=== PATIENT | female | born 1955 | race Caucasian/White ===

== ENCOUNTER 2021-06-19 10:01 | Day surgery (SDC) | payer MEDICARE, BC ==
[~2021-06-19] VITALS: Ht 172.7 cm; Wt 81.6 kg
[2021-06-19] VITALS (19 sets, daily range): BP systolic 110–151; BP diastolic 52–70
[~2021-06-19 10:01] MED LIST: ASPI-611 PO; CITA-311 PO; HYDR-4383 PO; LISI1TAB49 PO; LOVA20TA2 PO; POTA10TA37 PO; ZOLP5TAB8 PO
[2021-06-19] MEDS ORDERED: normal saline 1000ml 1,000 ML IV SCH (10:30)
[2021-06-19] MEDS ORDERED: fentaNYL/PF 50MCG/1 ML 2ML syringe IV ONE (10:30)
[2021-06-19] MEDS ORDERED: MIDAZolam 1mg/ml 10ml vial IV ONE (10:30)
[2021-06-19] MEDS ORDERED: ROSU40TA22 PO (10:47)
[2021-06-19] MEDS ORDERED: CLOP75TA34 PO (10:47)
[2021-06-19] MEDS ORDERED: LISI40TA13 PO (10:47)
[2021-06-19] MEDS ORDERED: AMLO5TAB16 PO (10:47)
[2021-06-19] MEDS ORDERED: MAGN500C4 PO (10:49)
[2021-06-19] MEDS ORDERED: VITA1TAB20 PO (10:49)
[2021-06-19] MEDS ORDERED: Potassium PO (10:52)
[2021-06-19] MEDS ORDERED: ESZO2TAB22 PO (10:52)
== END 2021-06-19 13:30 | disposition home or self-care (01) ==
LOC: SSTAY O 10:01
PROVIDERS: ATTEND Student in an Organized Health Care Education/Training Program
DX: I42.1 Obstructive hypertrophic cardiomyopathy (principal); I08.0 Rheumatic disorders of both mitral and aortic valves; I11.9 Hypertensive heart disease without heart failure; F41.9 Anxiety disorder, unspecified; I70.218 Atherosclerosis of native arteries of extremities with intermittent claudication, other extremity; E78.5 Hyperlipidemia, unspecified; Z88.1 Allergy status to other antibiotic agents; Z79.82 Long term (current) use of aspirin; Z79.01 Long term (current) use of anticoagulants; Z79.899 Other long term (current) drug therapy
CPT/HCPCS: 93312; 93325; 94799; J2250; J3010; J7030

== ENCOUNTER 2022-11-26 10:20 | Day surgery (SDC) | payer MEDICARE, BC ==
[2022-11-22 08:27] LABS: BASOPHILS % (AUTO) 0.3 % (0-1); EOSINOPHILS # (AUTO) 0.2 X10'3 (0-0.9); EOSINOPHILS % (AUTO) 1.9 % (0-6); HEMATOCRIT 40.9 % (35.0-45.0); HEMOGLOBIN 13.9 g/dl (12.0-16.0); LYMPHOCYTES # (AUTO) 1.4 X10'3 (1.1-4.8); LYMPHOCYTES % (AUTO) 15.7 % (21-51); MEAN CORPUSCULAR HEMOGLOBIN 28.7 PG (27.0-31.0); MEAN CORPUSCULAR HGB CONC 34.1 g/dL (33.0-36.5); MEAN CORPUSCULAR VOLUME 84.4 FL (78-98); MEAN PLATELET VOLUME 9.6 FL (7.4-10.4); MONOCYTES # (AUTO) 0.7 X10'3 (0-0.9); MONOCYTES % (AUTO) 7.5 % (2-12); NEUTROPHILS # (AUTO) 6.7 X10'3 (1.8-7.7); NEUTROPHILS % (AUTO) 74.6 % (42-75); PLATELET COUNT 207 X10'3 (140-440); RED BLOOD COUNT 4.84 X10'6 (4.20-5.60); RED CELL DISTRIBUTION WIDTH 13.3 % (11.5-14.5); WHITE BLOOD COUNT 8.9 X10'3 (4.5-11.0)
[2022-11-22 08:48] LABS: APTT 32 SECONDS (22-32); PROTHROMBIN TIME 10.7 SECONDS (9.0-12.0)
[2022-11-22 09:46] LABS: ALBUMIN 3.5 G/DL (3.4-5.0); ANION GAP 10 (8-16); BLOOD UREA NITROGEN 15 MG/DL (7-18); BUN/CREATININE RATIO 17.2 (10.0-20.0); CALCIUM 9.1 MG/DL (8.5-10.1); CHLORIDE 105 MMOL/L (99-107); CHOLESTEROL 141 MG/DL (0-200); CREATININE 0.87 MG/DL (0.40-0.90); GLUCOSE 97 MG/DL (70-104); HDL CHOLESTEROL 47 MG/DL (35-60); LDL CHOLESTEROL 64 MG/DL (50-100); POTASSIUM 3.5 MMOL/L (3.5-5.1); SODIUM 142 MMOL/L (135-145); TOTAL CARBON DIOXIDE 26.8 MMOL/L (24-32); TRIGLYCERIDES 152 MG/DL (20-135); eGFR 65 ML/MIN
[2022-11-26] VITALS (7 sets, daily range): BP systolic 126–150; BP diastolic 52–75; PULSE 54–64; RESP 16; TEMP 98.3; O2SAT 92–95
[~2022-11-26] VITALS: Ht 149.9 cm; Wt 84.5 kg
[~2022-11-26 10:20] MED LIST changes: +AMLO5TAB16 PO; +CLOP75TA34 PO; +ESZO2TAB22 PO; -LISI1TAB49 PO; +LISI40TA13 PO; +LORazepam 0.5 MG tablet PO PRN; -LOVA20TA2 PO; +MAGN500C4 PO; -POTA10TA37 PO; +Potassium PO; +ROSU40TA22 PO; +VITA1TAB20 PO; -ZOLP5TAB8 PO; +diphenhydrAMINE 25mg capsule PO PRN; +normal saline 1,000 ML IV SCH
[2022-11-26] MEDS ORDERED: CITA40TA16 PO (11:25)
[2022-11-26] MEDS ORDERED: DILT-117 PO (11:26)
[2022-11-26] MEDS ORDERED: NITR0.4T48 (11:26)
[2022-11-26] MEDS ORDERED: PANT40TA54 PO (11:26)
[2022-11-26] MEDS ORDERED: POTA8CAP20 PO (11:28)
[2022-11-26] MEDS ORDERED: LIDOcaine 1% (10mg/ml) 2ml vial ONE (11:40)
[2022-11-26] MEDS ORDERED: nitroGLYCERIN-Tridil 50MG/D5W 250 ML IV ONE (11:40)
[2022-11-26] MEDS ORDERED: verapamil 2.5 mg/ml inj IV ONE (11:40)
[2022-11-26] MEDS ORDERED: iohexol 350MG/ML 100ml bottle IV ONE ×3 (11:41→13:28)
[2022-11-26] MEDS ORDERED: heparin 1,000unit/ml 10ml vial 10 ML ONE (11:41)
[2022-11-26] MEDS ORDERED: midazolam 1 mg/ML 2ml injection ONE ×2 (11:41→13:10)
[2022-11-26] MEDS ORDERED: fentaNYL/PF 50MCG/1 ML 2ML syringe ONE ×3 (11:41→13:52)
[2022-11-26] MEDS ORDERED: LIDOcaine 1% 30ml preserv. free vial ONE (13:07)
[2022-11-26] MEDS ORDERED: proCHLORperazine 10 MG/2 ml inj ONE (13:16)
[2022-11-26] MEDS ORDERED: heparin 1,000 UNITS/NS 500ml 500 ML ONE (13:34)
[2022-11-26] MEDS ORDERED: aspirin 325mg tablet ONE (13:49)
[2022-11-26] MEDS ORDERED: clopidogrel 300mg tablet ONE (13:49)
[2022-11-26] MEDS ORDERED: HYDROcodone/acetaminophen 5mg/325mg tablet PO PRN (15:50)
[2022-11-26] MEDS ORDERED: HYDROcodone/acetaminophen 10/325mg tab PO PRN (15:50)
== END 2022-11-26 16:20 | disposition home or self-care (01) ==
LOC: SSTAY O 10:20
PROVIDERS: ATTEND Student in an Organized Health Care Education/Training Program
DX: I25.118 Atherosclerotic heart disease of native coronary artery with other forms of angina pectoris (principal); I25.82 Chronic total occlusion of coronary artery; I10 Essential (primary) hypertension; E78.5 Hyperlipidemia, unspecified; I65.21 Occlusion and stenosis of right carotid artery; I47.1 Supraventricular tachycardia; I42.8 Other cardiomyopathies; F17.290 Nicotine dependence, other tobacco product, uncomplicated; F41.9 Anxiety disorder, unspecified; Z79.899 Other long term (current) drug therapy; Z79.82 Long term (current) use of aspirin; Z88.1 Allergy status to other antibiotic agents
CPT/HCPCS: 36223; 36415; 80048; 80061; 85025; 85610; 85730; 93005; 93458; 99152; 99153; A6258; C1874; C9600; J0780; J1644; J2250; J3010; J3490; J7030; Q0163; Q9967; 36224; A4615; A6402; C1725; C1751; C1760; C1769; C1894

== ENCOUNTER 2023-04-28 05:26 | Day surgery (SDC) | payer MEDICARE, BC ==
[2023-04-22 10:01] LABS: BASOPHILS % (AUTO) 0.4 % (0-1); EOSINOPHILS # (AUTO) 0.1 X10'3 (0-0.9); EOSINOPHILS % (AUTO) 1.9 % (0-6); LYMPHOCYTES # (AUTO) 1.3 X10'3 (1.1-4.8); LYMPHOCYTES % (AUTO) 19.9 % (21-51); MEAN CORPUSCULAR HEMOGLOBIN 28.4 PG (27.0-31.0); MEAN CORPUSCULAR HGB CONC 33.6 g/dL (33.0-36.5); MEAN CORPUSCULAR VOLUME 84.5 FL (78-98); MEAN PLATELET VOLUME 9.3 FL (7.4-10.4); MONOCYTES # (AUTO) 0.4 X10'3 (0-0.9); MONOCYTES % (AUTO) 6.4 % (2-12); NEUTROPHILS # (AUTO) 4.7 X10'3 (1.8-7.7); NEUTROPHILS % (AUTO) 71.4 % (42-75); PRE OP HEMATOCRIT 42.6 % (35.0-45.0); PRE OP HEMOGLOBIN 14.3 g/dL (12.0-16.0); PRE OP PLATELET COUNT 204 X10'3 (140-440); PRE OP WHITE BLOOD COUNT 6.5 10'3 (4.8-10.8); RED BLOOD COUNT 5.04 X10'6 (4.20-5.60); RED CELL DISTRIBUTION WIDTH 14.1 % (11.5-14.5)
[2023-04-22 10:02] LABS: ALBUMIN 3.6 G/DL (3.4-5.0); ALBUMIN/GLOBULIN RATIO 0.9 (1.1-1.5); ALKALINE PHOSPHATASE 118 IU/L (46-116); BLOOD UREA NITROGEN 18 MG/DL (7-18); BUN/CREATININE RATIO 20.2 (10.0-20.0); CALCIUM 9.1 MG/DL (8.5-10.1); CHLORIDE 105 MMOL/L (99-107); CREATININE 0.89 MG/DL (0.40-0.90); PRE OP ALT 25 U/L (30-65); PRE OP ANION GAP 9 (8-16); PRE OP AST 21 U/L (10-37); PRE OP BILIRUB, TOTAL 0.4 MG/DL (0.0-1.0); PRE OP GLUCOSE 101 MG/DL (70-104); PRE OP POTASSIUM 4.3 MMOL/L (3.4-5.1); PRE OP SODIUM 141 MMOL/L (135-145); TOTAL CARBON DIOXIDE 27.4 MMOL/L (24-32); TOTAL PROTEIN 7.5 G/DL (6.4-8.2); eGFR 63 ML/MIN
[~2023-04-28] VITALS: Ht 175.3 cm; Wt 79.8 kg
[2023-04-28] VITALS (7 sets, daily range): BP systolic 119–154; BP diastolic 50–68; PULSE 58–72; RESP 11–16; TEMP 97.5; O2SAT 92–99
[~2023-04-28 05:26] MED LIST changes: -AMLO5TAB16 PO; -CITA-311 PO; +CITA40TA16 PO; +DILT-117 PO; -LORazepam 0.5 MG tablet PO PRN; -MAGN500C4 PO; +NITR0.4T48; +PANT40TA54 PO; +POTA8CAP20 PO; -Potassium PO; -VITA1TAB20 PO; -diphenhydrAMINE 25mg capsule PO PRN; -normal saline 1,000 ML IV SCH; +ringers solution, lacted 1,000 ML IV SCH
[2023-04-28] MEDS ORDERED: ringers solution, lactated 500 ML IV ONE (05:30)
[2023-04-28] MEDS ORDERED: cefazolin 2gm/D5W 100mL 100 ML IV ONE (05:30)
[2023-04-28] MEDS ORDERED: DOCUMENT DATE & TIME OF BETA-BLOCKER PO ONE (05:30)
[2023-04-28] MEDS ORDERED: famotidine 20mg tablet PO ONE (05:30)
[2023-04-28] MEDS ORDERED: BUPIVAcaine/PF 2.5mg/ml (0.25%) 10ml vial ONE (06:37)
[2023-04-28] MEDS ORDERED: fentaNYL/PF 50MCG/1 ML 2ML syringe ONE (07:33)
[2023-04-28] MEDS ORDERED: MIDAZolam 1 MG/ML 5ML VIAL ONE (07:33)
[2023-04-28] MEDS ORDERED: LIDOcaine 2% (20mg/ml) 5ml vial ONE (07:34)
[2023-04-28] MEDS ORDERED: propofol inj 20 ML IV ONE (07:34)
[2023-04-28] MEDS ORDERED: ringers solution, lacted 1,000 ML IV SCH (07:40)
[2023-04-28] MEDS ORDERED: morphine 2 MG/ML inj. syringe IV PRN (07:40)
[2023-04-28] MEDS ORDERED: labetalol 20mg/4ml (5mg/ml) syringe IV PRN (07:40)
[2023-04-28] MEDS ORDERED: hydrALAZINE 20mg/ml inj. IV PRN (07:40)
[2023-04-28] MEDS ORDERED: ondansetron/PF 4mg/2ml inj IV PRN (07:40)
[2023-04-28] MEDS ORDERED: morphine 4 MG/ML inj SYRINge IV PRN (07:40)
[2023-04-28] MEDS ORDERED: BUPIVAcaine/PF 2.5mg/ml (0.25%) 10ml vial IJ ONE (08:20)
== END 2023-04-28 09:41 | disposition home or self-care (01) ==
LOC: PAS 05:26
PROVIDERS: ATTEND Orthopaedic Surgery Hand Surgery
DX: M65.4 Radial styloid tenosynovitis [de Quervain] (principal); J44.9 Chronic obstructive pulmonary disease, unspecified; I12.9 Hypertensive chronic kidney disease with stage 1 through stage 4 chronic kidney disease, or unspecified chronic kidney disease; N18.30 Chronic kidney disease, stage 3 unspecified; E78.5 Hyperlipidemia, unspecified; I25.10 Atherosclerotic heart disease of native coronary artery without angina pectoris; F41.9 Anxiety disorder, unspecified; F32.A Depression, unspecified; F17.210 Nicotine dependence, cigarettes, uncomplicated; Z98.890 Other specified postprocedural states; Z95.5 Presence of coronary angioplasty implant and graft; Z88.1 Allergy status to other antibiotic agents
CPT/HCPCS: 25000; 36415; 80053; 82948; 85025; A6222; J0690; J2250; J2270; J2704; J3010; J3490; J7030; J7120; Z7506; Z7512; A4215; A4618; A6449; A7000

== ENCOUNTER 2023-07-28 05:41 | Day surgery (SDC) | payer MEDICARE, BC ==
[2023-07-24 15:34] LABS: BASOPHILS % (AUTO) 0.7 % (0-1); EOSINOPHILS # (AUTO) 0.2 X10'3 (0-0.9); EOSINOPHILS % (AUTO) 3.7 % (0-6); LYMPHOCYTES # (AUTO) 1.7 X10'3 (1.1-4.8); LYMPHOCYTES % (AUTO) 30.2 % (21-51); MEAN CORPUSCULAR HEMOGLOBIN 29.3 PG (27.0-31.0); MEAN CORPUSCULAR HGB CONC 34.2 g/dL (33.0-36.5); MEAN CORPUSCULAR VOLUME 85.6 FL (78-98); MEAN PLATELET VOLUME 9.6 FL (7.4-10.4); MONOCYTES # (AUTO) 0.5 X10'3 (0-0.9); MONOCYTES % (AUTO) 9.5 % (2-12); NEUTROPHILS # (AUTO) 3.1 X10'3 (1.8-7.7); NEUTROPHILS % (AUTO) 55.9 % (42-75); PRE OP HEMATOCRIT 41.6 % (35.0-45.0); PRE OP HEMOGLOBIN 14.2 g/dL (12.0-16.0); PRE OP PLATELET COUNT 190 X10'3 (140-440); PRE OP WHITE BLOOD COUNT 5.6 10'3 (4.8-10.8); RED BLOOD COUNT 4.86 X10'6 (4.20-5.60); RED CELL DISTRIBUTION WIDTH 13.8 % (11.5-14.5)
[2023-07-24 16:21] LABS: ALBUMIN 3.5 G/DL (3.4-5.0); ALKALINE PHOSPHATASE 97 IU/L (46-116); BLOOD UREA NITROGEN 18 MG/DL (7-18); BUN/CREATININE RATIO 16.7 (10.0-20.0); CALCIUM 8.9 MG/DL (8.5-10.1); CHLORIDE 107 MMOL/L (99-107); CREATININE 1.08 MG/DL (0.40-0.90); PRE OP ALT 30 U/L (30-65); PRE OP ANION GAP 7 (8-16); PRE OP AST 26 U/L (10-37); PRE OP BILIRUB, TOTAL 0.3 MG/DL (0.0-1.0); PRE OP GLUCOSE 110 MG/DL (70-104); PRE OP SODIUM 143 MMOL/L (135-145); TOTAL CARBON DIOXIDE 28.7 MMOL/L (24-32); TOTAL PROTEIN 7.1 G/DL (6.4-8.2); eGFR 51 ML/MIN
[~2023-07-28] VITALS: Ht 175.3 cm; Wt 78.5 kg
[2023-07-28] VITALS (8 sets, daily range): BP systolic 126–144; BP diastolic 45–59; PULSE 56–61; RESP 13–16; TEMP 98.1; O2SAT 93–97
[~2023-07-28 05:41] MED LIST changes: -CLOP75TA34 PO; +DOCUMENT DATE & TIME OF BETA-BLOCKER PO ONE; -NITR0.4T48; -ringers solution, lacted 1,000 ML IV SCH
[2023-07-28] MEDS: cefazolin 2gm/D5W 100mL 100 ML IV ONE (06:41)
[2023-07-28] MEDS: ringers solution, lacted 1,000 ML IV SCH (06:41)
[2023-07-28] MEDS: famotidine 20mg tablet PO ONE (06:41)
[2023-07-28] MEDS ORDERED: LIDOcaine 2% (20mg/ml) 5ml vial ONE (07:06)
[2023-07-28] MEDS ORDERED: morphine 2 MG/ML inj. syringe IV PRN (07:10)
[2023-07-28] MEDS ORDERED: labetalol 20mg/4ml (5mg/ml) syringe IV PRN (07:10)
[2023-07-28] MEDS ORDERED: ondansetron/PF 4mg/2ml inj IV PRN (07:10)
[2023-07-28] MEDS ORDERED: hydrALAZINE 20mg/ml inj. IV PRN (07:10)
[2023-07-28] MEDS ORDERED: morphine 4 MG/ML inj SYRINge IV PRN (07:10)
[2023-07-28] MEDS ORDERED: ringers solution, lacted 1,000 ML IV SCH (07:10)
[2023-07-28] MEDS: BUPIVAcaine/PF 2.5mg/ml (0.25%) 10ml vial ONE (08:28)
[2023-07-28] MEDS: LIDOcaine 2% (20mg/ml) 5ml vial ONE (08:28)
[2023-07-28] MEDS ORDERED: propofol inj 20 ML IV ONE (08:44)
== END 2023-07-28 09:40 | disposition home or self-care (01) ==
LOC: PAS 05:41
PROVIDERS: ATTEND Orthopaedic Surgery Hand Surgery
DX: G56.01 Carpal tunnel syndrome, right upper limb (principal); I12.9 Hypertensive chronic kidney disease with stage 1 through stage 4 chronic kidney disease, or unspecified chronic kidney disease; N18.9 Chronic kidney disease, unspecified; I25.10 Atherosclerotic heart disease of native coronary artery without angina pectoris; E78.00 Pure hypercholesterolemia, unspecified; K21.9 Gastro-esophageal reflux disease without esophagitis; F41.9 Anxiety disorder, unspecified; F32.A Depression, unspecified; M19.90 Unspecified osteoarthritis, unspecified site; F17.210 Nicotine dependence, cigarettes, uncomplicated; Z85.840 Personal history of malignant neoplasm of eye; Z79.82 Long term (current) use of aspirin; Z79.891 Long term (current) use of opiate analgesic; Z79.899 Other long term (current) drug therapy; Z90.49 Acquired absence of other specified parts of digestive tract; Z90.89 Acquired absence of other organs; Z96.641 Presence of right artificial hip joint; Z98.890 Other specified postprocedural states; Z88.1 Allergy status to other antibiotic agents; Z82.49 Family history of ischemic heart disease and other diseases of the circulatory system; Z83.6 Family history of other diseases of the respiratory system
CPT/HCPCS: 29848; 36415; 80053; 82948; 85025; J0690; J2704; J3490; J7030; J7120; Z7506; Z7512; A4215; A6449; A7000

== ENCOUNTER 2023-09-23 06:45 | Outpatient (CLI) | payer MEDICARE, BC ==
[~2023-09-23 06:45] MED LIST changes: -DOCUMENT DATE & TIME OF BETA-BLOCKER PO ONE
[2023-09-23 07:34] LABS: ALANINE AMINOTRANSFERASE 21 U/L (12-78); ALBUMIN 3.7 G/DL (3.4-5.0); ALBUMIN/GLOBULIN RATIO 1.1 (1.1-1.5); ALKALINE PHOSPHATASE 101 IU/L (46-116); ANION GAP 5 (8-16); ASPARTATE AMINO TRANSFERASE 17 U/L (10-37); BILIRUBIN,TOTAL 0.5 MG/DL (0.1-1.0); BLOOD UREA NITROGEN 19 MG/DL (7-18); BUN/CREATININE RATIO 21.3 (10.0-20.0); CALCIUM 8.9 MG/DL (8.5-10.1); CHLORIDE 106 MMOL/L (99-107); CREATININE 0.89 MG/DL (0.40-0.90); GLUCOSE 98 MG/DL (70-104); POTASSIUM 4.5 MMOL/L (3.5-5.1); SODIUM 139 MMOL/L (135-145); TOTAL CARBON DIOXIDE 28.4 MMOL/L (24-32); TOTAL PROTEIN 7.1 G/DL (6.4-8.2); eGFR 63 ML/MIN
[2023-09-23] MEDS ORDERED: GADOTERATE MEGLUMINE 7.5 MMOL/15 ML VIAL IV ONE (09:05)
== END 2023-09-23 23:59 | disposition home or self-care (01) ==
LOC: MRI 06:45
PROVIDERS: ATTEND Family Medicine
DX: I67.82 Cerebral ischemia (principal); G31.89 Other specified degenerative diseases of nervous system; H93.11 Tinnitus, right ear; H91.90 Unspecified hearing loss, unspecified ear
CPT/HCPCS: 36415; 70553; 80053; A9575

== ENCOUNTER 2024-04-30 14:40 | Inpatient (IN) | payer MEDICARE, BC ==
[~2024-04-30] VITALS: Ht 175.3 cm; Wt 77.5 kg
[~2024-04-30 14:40] MED LIST changes: -ROSU40TA22 PO; +ROSU40TA89 PO
[2024-04-30 15:28] LABS: BASOPHILS % (AUTO) 0.5 % (0-1); EOSINOPHILS # (AUTO) 0.2 X10'3 (0-0.9); EOSINOPHILS % (AUTO) 2.6 % (0-6); HEMATOCRIT 40.1 % (35.0-45.0); HEMOGLOBIN 13.8 g/dl (12.0-16.0); LYMPHOCYTES # (AUTO) 1.3 X10'3 (1.1-4.8); LYMPHOCYTES % (AUTO) 17.1 % (21-51); MEAN CORPUSCULAR HEMOGLOBIN 29.1 PG (27.0-31.0); MEAN CORPUSCULAR HGB CONC 34.4 g/dL (33.0-36.5); MEAN CORPUSCULAR VOLUME 84.6 FL (78-98); MONOCYTES # (AUTO) 0.6 X10'3 (0-0.9); MONOCYTES % (AUTO) 8.5 % (2-12); NEUTROPHILS # (AUTO) 5.4 X10'3 (1.8-7.7); NEUTROPHILS % (AUTO) 71.3 % (42-75); PLATELET COUNT 221 X10'3 (140-440); RED BLOOD COUNT 4.74 X10'6 (4.20-5.60); RED CELL DISTRIBUTION WIDTH 13.6 % (11.5-14.5); WHITE BLOOD COUNT 7.5 X10'3 (4.5-11.0)
[2024-04-30] MEDS: azithromycin/NS 500mg/250ml 250 ML IV ONE ×2 (15:45→20:17)
[2024-04-30 15:48] LABS: ALBUMIN 3.2 G/DL (3.4-5.0); ANION GAP 9 (8-16); BLOOD UREA NITROGEN 15 MG/DL (7-18); BUN/CREATININE RATIO 17.9 (10.0-20.0); CALCIUM 8.8 MG/DL (8.5-10.1); CHLORIDE 105 MMOL/L (99-107); CREATININE 0.84 MG/DL (0.40-0.90); GLUCOSE 110 MG/DL (70-104); POTASSIUM 3.5 MMOL/L (3.5-5.1); PRO BRAIN NATRIURETIC PEPTIDE 609 PG/ML (0-125); SODIUM 140 MMOL/L (135-145); TOTAL CARBON DIOXIDE 26.1 MMOL/L (24-32); eCRCL 67 ML/MIN; eGFR 67 ML/MIN
[2024-04-30] MEDS: ipratropium/albuterol 3ml nebule NEB ONE (15:50)
[2024-04-30] MEDS: CefTRIAXone 2gm/D5W 50ml BAG 50 ML IV ONE (16:33)
[2024-04-30] MEDS ORDERED: magnesium Cl slow-release 64mg tablet PO PRN (17:50)
[2024-04-30] MEDS ORDERED: magnesium sulf-water 4G/100mL 100 ML IV PRN (17:50)
[2024-04-30] MEDS ORDERED: magnesium hydroxide 30ml (MOM) UD suspension PO PRN (17:50)
[2024-04-30] MEDS ORDERED: potassium Cl 20 mEq SR tablet PO PRN ×2 (17:50)
[2024-04-30] MEDS ORDERED: ondansetron/PF 4mg/2ml inj IV PRN (17:50)
[2024-04-30] MEDS ORDERED: potassium Cl 40MEQ/1/2NS 520ml 520 ML IV PRN (17:50)
[2024-04-30] MEDS ORDERED: magnesium sulf-water 2g/50mL 50 ML IV PRN (17:50)
[2024-04-30] MEDS ORDERED: mag hydrox/Alum hydrox/simeth 30ml oral suspension PO PRN (17:50)
[2024-04-30] MEDS ORDERED: acetaminophen 325mg tablet PO PRN (17:50)
[2024-04-30] MEDS ORDERED: LISI-644 PO (17:54)
[2024-04-30] MEDS ORDERED: [UNRECOGNIZED DRUG - CODE] PO (17:57)
[2024-04-30] MEDS ORDERED: ROSU40TA PO (19:41)
[2024-04-30] MEDS ORDERED: DILT120C10 PO (19:43)
[2024-04-30] MEDS ORDERED: DILT60CA2 PO (19:47)
[2024-04-30] MEDS: K and/or MAG REPLACEMENT MC SCH (20:00)
[2024-04-30] MEDS: docusate sod 100mg capsule PO SCH (20:00)
[2024-04-30 22:00] VITALS: BP 131/52; PULSE 72; RESP 12; TEMP 98; O2SAT 92
[2024-04-30 22:02] VITALS: RESP 19; O2SAT 92
[2024-05-01] VITALS (14 sets, daily range): BP systolic 135–165; BP diastolic 48–64; PULSE 71–105; RESP 15–22; TEMP 97.7–98; O2SAT 90–93
[2024-05-01] MEDS: albuterol 2.5 MG/3 ML nebule NEB PRN (05:33)
[2024-05-01 06:11] LABS: BASOPHILS % (AUTO) 0.5 % (0-1); EOSINOPHILS # (AUTO) 0.3 X10'3 (0-0.9); EOSINOPHILS % (AUTO) 3.9 % (0-6); HEMATOCRIT 41.8 % (35.0-45.0); HEMOGLOBIN 14.3 g/dl (12.0-16.0); LYMPHOCYTES # (AUTO) 1.8 X10'3 (1.1-4.8); LYMPHOCYTES % (AUTO) 27.4 % (21-51); MEAN CORPUSCULAR HGB CONC 34.1 g/dL (33.0-36.5); MEAN CORPUSCULAR VOLUME 85.1 FL (78-98); MEAN PLATELET VOLUME 9.1 FL (7.4-10.4); MONOCYTES # (AUTO) 0.6 X10'3 (0-0.9); MONOCYTES % (AUTO) 8.5 % (2-12); NEUTROPHILS # (AUTO) 3.9 X10'3 (1.8-7.7); NEUTROPHILS % (AUTO) 59.7 % (42-75); PLATELET COUNT 216 X10'3 (140-440); RED BLOOD COUNT 4.92 X10'6 (4.20-5.60); RED CELL DISTRIBUTION WIDTH 13.6 % (11.5-14.5); WHITE BLOOD COUNT 6.6 X10'3 (4.5-11.0)
[2024-05-01 06:24] LABS: ALANINE AMINOTRANSFERASE 21 U/L (12-78); ALBUMIN 3.1 G/DL (3.4-5.0); ALBUMIN/GLOBULIN RATIO 0.9 (1.1-1.5); ALKALINE PHOSPHATASE 114 IU/L (46-116); ANION GAP 7 (8-16); ASPARTATE AMINO TRANSFERASE 27 U/L (10-37); BILIRUBIN,TOTAL 0.4 MG/DL (0.1-1.0); BLOOD UREA NITROGEN 11 MG/DL (7-18); BUN/CREATININE RATIO 14.3 (10.0-20.0); CALCIUM 8.7 MG/DL (8.5-10.1); CHLORIDE 107 MMOL/L (99-107); CREATININE 0.77 MG/DL (0.40-0.90); GLUCOSE 107 MG/DL (70-104); MAGNESIUM 2.5 MG/DL (1.5-2.4); POTASSIUM 5.2 MMOL/L (3.5-5.1); SODIUM 144 MMOL/L (135-145); TOTAL CARBON DIOXIDE 29.6 MMOL/L (24-32); TOTAL PROTEIN 6.5 G/DL (6.4-8.2); eCRCL 73 ML/MIN; eGFR 75 ML/MIN
[2024-05-01] MEDS: CefTRIAXone/D5W-Rocephin 1gm 50 ML IV SCH (07:27)
[2024-05-01] MEDS: diltiazem CD 180mg cap (once-daily) PO SCH (07:29)
[2024-05-01] MEDS: aspirin 81mg, enteric-coated 1 TAB TABLET.DR PO SCH (07:30)
[2024-05-01] MEDS: pantoprazole 40mg Tablet.DR PO SCH (07:30)
[2024-05-01] MEDS: azithromycin/NS 500mg/250ml 250 ML IV SCH (09:54)
[2024-05-01] MEDS: ipratropium/albuterol 3ml nebule NEB SCH (10:43)
[2024-05-01] MEDS: predniSONE 20 mg tablet PO SCH (11:34)
[2024-05-01] MEDS: HYDROcodone/acetaminophen 5mg/325mg tablet PO PRN (11:36)
[2024-05-01] MEDS: lactobacillus rhamnosus 10,000 MMU CELLS/CAPSULE PO SCH (19:27)
[2024-05-01] MEDS: zolpidem 5mg tablet PO PRN (19:27)
[2024-05-02 06:00] VITALS: BP 185/67; PULSE 95; RESP 20; TEMP 98.7; O2SAT 97
[2024-05-02] MEDS ORDERED: iohexol 350MG/ML 100ml bottle IV ONE (06:07)
[2024-05-02 06:26] LABS: BASOPHILS % (AUTO) 0.2 % (0-1); EOSINOPHILS % (AUTO) 0.2 % (0-6); HEMATOCRIT 41.5 % (35.0-45.0); LYMPHOCYTES # (AUTO) 1.1 X10'3 (1.1-4.8); MEAN CORPUSCULAR HEMOGLOBIN 28.7 PG (27.0-31.0); MEAN CORPUSCULAR HGB CONC 33.8 g/dL (33.0-36.5); MEAN PLATELET VOLUME 8.9 FL (7.4-10.4); MONOCYTES # (AUTO) 0.7 X10'3 (0-0.9); MONOCYTES % (AUTO) 7.4 % (2-12); NEUTROPHILS # (AUTO) 8.1 X10'3 (1.8-7.7); NEUTROPHILS % (AUTO) 81.2 % (42-75); PLATELET COUNT 245 X10'3 (140-440); RED BLOOD COUNT 4.88 X10'6 (4.20-5.60); RED CELL DISTRIBUTION WIDTH 13.7 % (11.5-14.5)
[2024-05-02 06:55] LABS: ALANINE AMINOTRANSFERASE 23 U/L (12-78); ALBUMIN 3.1 G/DL (3.4-5.0); ALBUMIN/GLOBULIN RATIO 0.9 (1.1-1.5); ALKALINE PHOSPHATASE 99 IU/L (46-116); ANION GAP 8 (8-16); ASPARTATE AMINO TRANSFERASE 25 U/L (10-37); BILIRUBIN,TOTAL 0.4 MG/DL (0.1-1.0); BLOOD UREA NITROGEN 10 MG/DL (7-18); BUN/CREATININE RATIO 13.5 (10.0-20.0); CALCIUM 9.5 MG/DL (8.5-10.1); CHLORIDE 106 MMOL/L (99-107); CREATININE 0.74 MG/DL (0.40-0.90); GLUCOSE 102 MG/DL (70-104); MAGNESIUM 1.8 MG/DL (1.5-2.4); POTASSIUM 4.4 MMOL/L (3.5-5.1); SODIUM 142 MMOL/L (135-145); TOTAL CARBON DIOXIDE 27.8 MMOL/L (24-32); TOTAL PROTEIN 6.6 G/DL (6.4-8.2); eCRCL 76 ML/MIN; eGFR 78 ML/MIN
[2024-05-02] MEDS: atorvastatin 20mg tablet PO SCH (07:12)
[2024-05-02] MEDS: lisinopril 20mg tablet PO SCH (07:13)
[2024-05-02 08:06] VITALS: PULSE 82; RESP 18; O2SAT 94
[2024-05-02 08:11] VITALS: PULSE 88; RESP 18
[2024-05-02] MEDS: citalopram 20mg tablet PO SCH (08:39)
[2024-05-02 10:00] VITALS: BP 145/61; PULSE 92; RESP 16; TEMP 98; O2SAT 94
[2024-05-02] MEDS ORDERED: PRED10TA23 PO (10:43)
[2024-05-02] MEDS ORDERED: AZIT500T9 PO (10:43)
[2024-05-02] MEDS ORDERED: LACT1CAP26 PO (10:43)
[2024-05-02] MEDS ORDERED: ALBU8HFA INH (10:43)
[2024-05-02] MEDS ORDERED: CEFD300C3 PO (10:44)
[2024-05-02] MEDS ORDERED: BUDE10.2 INH (10:44)
[2024-05-02] MEDS ORDERED: CLIN150C2 PO (13:57)
[2024-05-03] MEDS ORDERED: non-formulary drug (Citalopram Hydrobromide (Citalopram HBr) 1 TAB) PO SCH (08:00)
== END 2024-05-02 11:34 | disposition home or self-care (01) | DRG 177 ==
LOC: ER 14:40 → ED HOLD 17:50 → ORTHO 4S 21:17
PROVIDERS: ADMIT Internal Medicine; ATTEND Family Medicine
PROC: BW241ZZ Computerized Tomography (CT Scan) of Chest and Abdomen using Low Osmolar Contrast (ICD-10-PCS; principal; 2024-04-30)
DX: J69.0 Pneumonitis due to inhalation of food and vomit (principal); J96.01 Acute respiratory failure with hypoxia; I42.1 Obstructive hypertrophic cardiomyopathy; I42.2 Other hypertrophic cardiomyopathy; J18.9 Pneumonia, unspecified organism; Z20.822 Contact with and (suspected) exposure to COVID-19; E78.00 Pure hypercholesterolemia, unspecified; R91.1 Solitary pulmonary nodule; F17.200 Nicotine dependence, unspecified, uncomplicated; I10 Essential (primary) hypertension; F41.9 Anxiety disorder, unspecified; G89.29 Other chronic pain; K21.9 Gastro-esophageal reflux disease without esophagitis; F32.A Depression, unspecified; M54.9 Dorsalgia, unspecified; Z79.82 Long term (current) use of aspirin; Z79.899 Other long term (current) drug therapy; Z88.1 Allergy status to other antibiotic agents
CPT/HCPCS: 36415; 70450; 71046; 71260; 80048; 80053; 83605; 83735; 83880; 84145; 85025; 87040; 87081; 87502; 87503; 87811; 94640; 94760; 96374; 99285; A4615; G0378; J0456; J0696; J7512; Q9967